=== PATIENT | male | born 1965 | race Caucasian/White ===

== ENCOUNTER 2024-09-10 23:24 | Emergency (ER) | payer OTHER, SELFPAY ==
[2024-09-10 23:25] VITALS: BP 107/77
[2024-09-11 00:28] VITALS: BP 95/50
[2024-09-11 00:30] VITALS: BP 102/54
[2024-09-11 00:34] LABS: Glucose - Point of Care 92 mg/dl (70-99)
[2024-09-11 00:43] LABS: % Basophils 0.2 % (0-2); % Eosinophils 0.4 % (0-6); % Immature Granulocytes 0.2 % (0-0.5); % Lymphocytes 2.7 % (20.5-51.1); % Neutrophils 91.5 % (42.2-75.2); Absolute Eosinophils 0.1 10^3/uL (0-0.7); Absolute Lymphocytes 0.4 10^3/uL (1.2-3.4); Absolute Monocytes 0.7 10^3/uL (0.1-0.6); Hematocrit 50.1 % (39.0-52.0); Hemoglobin 16.9 g/dL (13.0-18.0); Mean Corp Hgb Conc. 33.7 g/dL (33.0-37.0); Mean Corpuscular Hgb 30.2 pg (27.0-31.0); Mean Corpuscular Volume 89.5 fL (80.0-94.0); Nucleated Red Blood Cells % 0 % (-); Platelet Count 166 10^3/uL (130-400); Red Cell Dist. Width 12.2 % (11.5-14.5); White Blood Cell Count 13.1 10^3/uL (4.8-10.8)
[2024-09-11 01:01] LABS: ALT (SGPT) 59 U/L (0-50); AST (SGOT) 38 U/L (17-59); Alkaline Phosphatase 52 U/L (38-126); Blood Urea Nitrogen 19 mg/dl (9-20); Calcium 9.7 mg/dl (8.4-10.2); Carbon Dioxide 22 mmol/L (22-30); Chloride 99 mmol/L (98-107); Glucose 95 mg/dl (70-99); Lipase 64 U/L (23-300); Potassium 4.9 mmol/L (3.5-5.1); Sodium 136 mmol/L (135-145); Total Bilirubin 1.3 mg/dl (0.2-1.3); Total Protein 7.6 g/dl (6.3-8.2); eGFR > 60.00
[2024-09-11] MEDS: NSS 1000 IV (01:20)
[2024-09-11 01:21] VITALS: BP 122/61
--- NOTE | 2024-09-11 01:36 | ED.GENMED ---
History of Present Illness
General
Chief Complaint: Abdominal Pain
Time Seen by Provider: 09/11/24 00:48
History of Present Illness
History of Present Illness:
58-year-old male with prior history of colon cancer presenting to the emergency department for nausea, vomiting, diarrhea. Patient reports symptoms started abruptly around 3 PM today. Patient is a [employer], got home from [place] yesterday, so does note
that he was ingesting abnormal foods. Denies any significant abdominal pain. Denies any blood in the vomit or diarrhea. Has had difficulty tolerating p.o. Denies chest pain or difficulty breathing. Denies fever. Reports history of abdominal
surgeries in the past, colon resection and hernia repair. Denies additional acute medical complaints
Phy Exam
Physical Exam
Physical Exam:
General: Well-appearing, mild dryness to mucous membranes
HEENT: protecting airway
Neck: appears supple
CV: Normal heart rate, regular rhythm
Resp: No accessory muscle use, no increased work of breathing, lungs clear to auscultation bilaterally
Abd: Soft and non-distended, no tenderness to palpation
Extremities: No deformities, no swelling
Neuro: alert, no focal neurologic deficit
: deferred
Rectal: deferred
Psych: Normal affect
Skin: Intact
Course
Orders/Labs/Results
Orders:
Orders
09/11/24 00:09
IV Insert/Care/Rem.- Treatment PRN
09/11/24 00:23
Complete Blood Count/With Diff Urgent
Comprehensive Metabolic Panel Urgent
Lipase Urgent
09/11/24 01:10
0.9% Sodium Chloride 1000 ml [Nss] 1,000 ml IV BOLUS
Abnormal Lab Results
09/11/24
00:23
WBC 13.1 H 10^3/uL
(4.8-10.8)
MPV 11.0 H fL
(7.4-10.4)
Absolute Neuts (auto) 12.0 H 10^3/uL
(1.4-6.5)
Absolute Lymphs (auto) 0.4 L 10^3/uL
(1.2-3.4)
Absolute Monos (auto) 0.7 H 10^3/uL
(0.1-0.6)
Neutrophils % 91.5 H %
(42.2-75.2)
Lymphocytes % 2.7 L %
(20.5-51.1)
ALT 59 H U/L
(0-50)
09/11/24 00:23
09/11/24 00:23
Vital Signs
Initial and Last Documented VS:
Initial Vital Signs
Temp Pulse Resp BP Pulse Ox
98.3 F 80 18 107/77 98
09/10/24 23:25 09/10/24 23:25 09/10/24 23:25 09/10/24 23:25 09/10/24 23:25
Last Documented Vital Signs
Temp Pulse Resp BP Pulse Ox
98.3 F 89 16 127/58 98
09/10/24 23:25 09/11/24 02:15 09/11/24 02:15 09/11/24 02:00 09/11/24 02:00
MDM/Problems Addressed
MDM/Problems Addressed:
58-year-old male presenting to the emergency department for nausea, vomiting, diarrhea. Vital signs normal.
On exam, patient is resting comfortably, nontoxic. Mild dryness to mucous membranes. Symptoms appear most consistent with gastroenteritis, likely viral from possible food ingestion. Patient afebrile, nontoxic. No tenderness to the abdomen with
lower suspicion for serious intra-abdominal process or infection. Do not feel patient requires advanced imaging at this time. Will obtain laboratory analysis and treat patient therapeutically with IV fluids.
02:30 -patient's labs are unremarkable. He is tolerating p.o. At this time feel stable for discharge. Will prescribe Zofran. Advised bland diet. Return precautions discussed and patient verbalized understanding
*Critical Care Note
Total Time (30-74mins, 75-104mins- exclusive of procedures): Not Applicable
ED Attending Note
-
Portions of this chart may have been created with voice recognition software.� Occasional wrong word or��sound alike� substitutions may have occurred due to the inherent limitations of voice recognition software.
Discharge Plan
Departure
Referrals:
Fahad Smith DO [Family Provider] -
Interventions
Interventions:
*Risk Screen - Suicide Last Done: 09/11/24 02:16
*General Assessment Last Done: 09/11/24 02:16
*Neglect/Abuse Screening Last Done: 09/11/24 02:16
*ED COVID-19 Vaccine History Last Done: 09/11/24 02:16
[facility] Assessment Last Done: 09/11/24 01:25
Discharge Date and Time
Print Language: CANADIAN
[2024-09-11 02:00] VITALS: BP 127/58
[2024-09-11] MEDS: ZOFRAN ODT (ORALLY DISINTEGRATING) 4 MG PO (02:52)
== END 2024-09-11 02:59 | disposition home or self-care (01) ==
LOC: EMR 23:24
PROVIDERS: Emergency Medicine; EMERGENCY PHYSICIAN Student in an Organized Health Care Education/Training Program; FAMILY PHYSICIAN Family Medicine
DX: R11.2 Nausea with vomiting, unspecified (principal); R19.7 Diarrhea, unspecified; Z85.038 Personal history of other malignant neoplasm of large intestine
CPT/HCPCS: 96360; 99284; 80053; 82962; 83690; 85025